=== PATIENT | female | born 1985 | race Caucasian/White ===

== ENCOUNTER → 2018-01-01 11:45 | Outpatient (CLI) | payer BC, SELFPAY ==
[2018-01-01 12:17] LABS: Bilirubin Urine UA NEGATIVE (NEGATIVE); Color Urine UA YELLOW; Glucose Urine UA NEGATIVE (Normal); Ketones Urine UA NEGATIVE (NEGATIVE); Leukocyte Esterase Urine UA NEGATIVE (NEGATIVE); Nitrite Urine UA Negative (Negative); Occult Blood Urine UA 3+ (Negative); Protein Urine UA NEGATIVE (Negative); Urobilinogen Urine UA 0.2 E.U./dL (0.2)
[2018-01-01 12:18] LABS: Appearance Urine UA Slightly Cloudy
[2018-01-01 12:23] LABS: Amorphous Sediment Urine 4+; Bacteria Urine Few (2-10); Culture Indicated Urine Cult Not Indicated; RBC Urine 0-1/HPF (0-5/HPF); Squamous Epithelial Cell Urine 5-10 /HPF; WBC Urine 0-1/HPF (0-5/HPF)
[2018-01-01 13:11] LABS: Add Manual Diff / Slide Review NO; Basophils Percent Auto 0.5 % (0-2); Eosinophils Percent Auto 2.7 % (2-4); Hemoglobin 14.5 g/dL (12.0-16.0); Lymphocytes Percent Auto 31.2 % (25-40); Mean Corpuscular HGB Conc 33.6 % (30-36); Mean Corpuscular Hemoglobin 27.9 PG (26-34); Monocytes Percent Auto 6.8 % (3-14); Neutrophils Absolute Auto 5000 /uL (3000-5900); Neutrophils Percent Auto 58.8 % (50-75); Platelet Count 312 X10^3/uL (150-400); Red Blood Cell Count 5.19 X10^6/uL (4.0-5.2); Red Cell Distribution Width 13.5 % (11.6-14.8); White Blood Cell Count 8.5 X10^3/uL (4.5-11.0)
[2018-01-01 13:23] LABS: Alanine Aminotransferase 85 IU/L (9-52); Albumin 4.3 g/dL (3.5-5.0); Albumin Globulin Ratio 1.6 (1.0-2.8); Alkaline Phosphatase 74 U/L (38-126); Aspartate Aminotransferase 28 IU/L (14-36); BUN Creatinine Ratio 12.9 (6-22); Bilirubin Total 0.7 mg/dL (0.2-1.3); Blood Urea Nitrogen 9 mg/dL (7-17); Calcium 9.9 mg/dL (8.4-10.2); Carbon Dioxide 30 mmol/L (22-32); Chloride 102 mmol/L (98-107); Estimated Glomerular Filt Rate > 60.0 mL/min (>60); Globulin 2.7 g/dL (1.7-4.1); Glucose 82 mg/dL (70-100); HEMOLYSIS < 15 (0-50); Lipase 60 U/L (23-300); Potassium 4.8 mmol/L (3.4-5.1); Sodium 140 mmol/L (137-145)
== END ==
PROVIDERS: PCP Family Medicine; Visit Provider Internal Medicine
DX: R10.11 Right upper quadrant pain (principal)
CPT/HCPCS: 36415; 80053; 81003; 81015; 83690; 85025

== ENCOUNTER → 2018-01-04 07:40 | Outpatient (CLI) | payer BC, SELFPAY ==
--- NOTE | 2018-01-04 07:41 | DI.US.S_ITS ---
PROCEDURE: US ABDOMEN COMPLETE INDICATIONS: RIGHT UPPER QUADRANT PAIN TECHNIQUE: Real-time scanning was performed of the abdominal and retroperitoneal organs, with image documentation. COMPARISON: [facility], CT, ABD/PELVIS W/CON (PNL), 12/24/2013, 16:28. FINDINGS: Liver: Liver is normal in size and homogeneous in echotexture. Gallbladder: Impacted gallstone present above in the gallbladder neck or cystic duct measured 2.9 cm. Gallbladder wall is normal in thickness measuring 2.3 mm. Negative sonographic Landrum's sign. Biliary ducts: Intrahepatic bile ducts are non-dilated. Extrahepatic bile duct caliber measures 5.6 mm. Normal is 6-7 mm or less in diameter, or 10 mm or less post-cholecystectomy. Pancreas: Visualized portions of the pancreas are sonographically normal. Spleen: Spleen is normal in size and homogeneous in echotexture. Kidneys: Kidneys are normal in size and echotexture. Right kidney measures 12.8 cm long; left kidney measures 11.6 cm long. No hydronephrosis or nephrolithiasis. No solid masses. Aorta: Visualized aorta is normal in caliber at less than 3 cm. Iliacs: Proximal common iliac arteries are normal in caliber at less than 2.5 cm. IVC: Intrahepatic inferior vena cava is patent. Miscellaneous: No free abdominal fluid. IMPRESSION: Impacted stone within the gallbladder neck and/or cystic duct and the gallbladder wall is normal measuring 2.3 mm. Dictated by: Gildardo OLSON Interpreted: Claudia Brasher MD on 01/04/2018 at 9:26 Approved by: Claudia Brasher M.D. on 01/04/2018 at 11:55
== END ==
PROVIDERS: PCP Family Medicine; Visit Provider Internal Medicine
DX: K80.20 Calculus of gallbladder without cholecystitis without obstruction (principal); R10.11 Right upper quadrant pain
CPT/HCPCS: 76700

== ENCOUNTER → 2018-11-29 10:49 | Outpatient (CLI) | payer BC, SELFPAY ==
[2018-11-29 12:36] LABS: Blood Urea Nitrogen 11 mg/dL (7-17); Calcium 9.4 mg/dL (8.4-10.2); Carbon Dioxide 27 mmol/L (22-32); Chloride 104 mmol/L (98-107); Cholesterol 198 mg/dL (140-199); Estimated Glomerular Filt Rate > 60.0 mL/min (>60); Glucose 92 mg/dL (70-100); HDL Cholesterol 42 mg/dL (40-60); HEMOLYSIS < 15 (0-50); LDL Cholesterol Calculated 139 mg/dL (<100); Potassium 3.7 mmol/L (3.4-5.1); Sodium 141 mmol/L (137-145); Triglycerides 86 mg/dL (35-150)
[2018-11-29 13:34] LABS: TSH w/ Reflex to FT4 1.87 uIU/mL (0.47-4.68)
== END ==
PROVIDERS: PCP Registered Nurse; Visit Provider Registered Nurse
DX: Z00.00 Encounter for general adult medical examination without abnormal findings (principal); E66.01 Morbid (severe) obesity due to excess calories
CPT/HCPCS: 36415; 80048; 80061; 84443

== ENCOUNTER → 2021-07-06 07:01 | Outpatient (CLI) | payer BC, SELFPAY ==
--- NOTE | 2021-07-06 07:03 | DI.US.S_ITS ---
PROCEDURE: US OB <= 14 WEEKS FETUS INDICATIONS: INITIAL VIABILITY DATING OUTSIDE/PRIOR DATING DATA: Last menstrual period (LMP): 03/31/2021. LMP-based estimated date of delivery (SANDER): 01/05/2022. First dating scan (date and location): 07/06/2021 at . Estimated date of delivery (SANDER) from first dating scan: 02/18/2022. The calculations are made using the ultrasound SANDER of 02/18/2022. TECHNIQUE: Real-time scanning was performed of the fetus and maternal pelvic organs, with image documentation. Endovaginal scanning was also performed to better visualize the fetus and maternal ovaries. COMPARISON: None. FINDINGS: There is an intrauterine with a gestational sac and pole. The estimated gestational age is 7 weeks 4 days. cardiac activity is present with heart rate 143 BPM. Maternal organs: Ovaries are grossly normal. There is a corpus luteum in left ovary. IMPRESSION: 1. A single living intrauterine gestation with an estimated gestational age of 7 weeks 4 days corresponding to ultrasound SANDER 02/18/2022. We strive to produce accurate, complete, and clear reports of imaging services. To assist us in improving patient care, this report was composed using standard report templates and voice recognition software. Therefore, it may contain abnormal punctuation, insertions and/or omissions. Occasional wrong-word or sound-alike substitutions may occur. Though we review the report and make efforts to correct it, we do recommend that the report be read carefully in proper context to recognize any text inaccuracies. Dictated by: Jolie Vlila M.D. on 07/06/2021 at 9:25 Approved by: Jolie Villa M.D. on 07/06/2021 at 9:29
[2021-07-06 09:49] LABS: Add Manual Diff / Slide Review NO; Basophils Absolute Auto 0 /uL (0-100); Basophils Percent Auto 0.4 % (0-2); Eosinophils Absolute Auto 100 /uL (0-450); Eosinophils Percent Auto 0.8 % (2-4); Hematocrit 38.8 % (36-46); Hemoglobin 13.3 g/dL (12.0-16.0); Lymphocytes Absolute Auto 1900 /uL (1100-4500); Lymphocytes Percent Auto 19.1 % (25-40); Mean Corpuscular HGB Conc 34.3 % (30-36); Mean Corpuscular Hemoglobin 28.1 PG (26-34); Monocytes Absolute Auto 400 /uL (0-900); Monocytes Percent Auto 4.4 % (3-14); Neutrophils Absolute Auto 7500 /uL (1500-7000); Neutrophils Percent Auto 75.3 % (50-75); Platelet Count 320 X10^3/uL (150-400); Red Blood Cell Count 4.72 X10^6/uL (4.0-5.2); Red Cell Distribution Width 13.8 % (11.6-14.8); White Blood Cell Count 9.9 X10^3/uL (4.5-11.0)
[2021-07-06 10:46] LABS: Appearance Urine UA CLEAR; Bilirubin Urine UA NEGATIVE (NEGATIVE); Color Urine UA YELLOW; Glucose Urine UA NEGATIVE (Negative); Hepatitis B Surface Antigen NEGATIVE s/c (NEGATIVE); Ketones Urine UA NEGATIVE (NEGATIVE); Leukocyte Esterase Urine UA NEGATIVE (NEGATIVE); Nitrite Urine UA NEGATIVE (Negative); Occult Blood Urine UA TRACE-INTACT (Negative); Protein Urine UA NEGATIVE (Negative); Specific Gravity Urine UA <=1.005 (1.000-1.035); Urobilinogen Urine UA 0.2 E.U./dL (0.2)
[2021-07-06 11:04] LABS: HIV 1 & 2 Ab/Ag 4th Gen Combo NEGATIVE (NEGATIVE); Hep C Virus Ab w/Reflex Quant NEGATIVE s/c (NEGATIVE)
[2021-07-07 05:58] LABS: RPR Screen Non Reactive (Non Reactive)
[2021-07-07 07:36] LABS: Varicella IgG Antibody 2349 index (Immune >165)
== END ==
PROVIDERS: PCP Family Medicine; Referring Provider Family Medicine; Visit Provider Family Medicine
DX: Z34.81 Encounter for supervision of other normal pregnancy, first trimester (principal); Z3A.01 Less than 8 weeks gestation of pregnancy
CPT/HCPCS: 36415; 76801; 76817; 80055; 81003; 86787; 86803; 86850; 86900; 86901; 87086; 87389

== ENCOUNTER → 2021-07-13 12:52 | Outpatient (CLI) | payer BC, SELFPAY | PROVIDERS: PCP Family Medicine; Referring Provider Family Medicine; Visit Provider Family Medicine | DX: O09.511 Supervision of elderly primigravida, first trimester; Z3A.08 8 weeks gestation of pregnancy | CPT/HCPCS: 36415; 81420 ==

== ENCOUNTER → 2021-08-05 11:31 | Outpatient (CLI) | payer BC, SELFPAY ==
[2021-08-05 13:58] LABS: HCG Quantitative /Beta subunit 13751 mIU/mL
== END ==
PROVIDERS: PCP Family Medicine; Referring Provider Family Medicine; Visit Provider Family Medicine
DX: O03.9 Complete or unspecified spontaneous abortion without complication (principal)
CPT/HCPCS: 36415; 84702

== ENCOUNTER → 2021-08-07 09:25 | Outpatient (CLI) | payer BC, SELFPAY ==
[2021-08-07 10:31] LABS: HCG Quantitative /Beta subunit 13843 mIU/mL
== END ==
PROVIDERS: PCP Family Medicine; Referring Provider Family Medicine; Visit Provider Family Medicine
DX: O03.9 Complete or unspecified spontaneous abortion without complication (principal)
CPT/HCPCS: 36415; 84702

== ENCOUNTER → 2021-08-09 11:37 | Outpatient (CLI) | payer BC, SELFPAY ==
--- NOTE | 2021-08-09 11:38 | DI.US.S_ITS ---
PROCEDURE: US OB <= 14 WEEKS FETUS INDICATIONS: VIABILITY CHECK OUTSIDE/PRIOR DATING DATA: Last menstrual period (LMP): 03/31/2021 LMP-based estimated date of delivery (SANDER): 01/05/2022. First dating scan (date and location): 07/06/2021. Estimated date of delivery (SANDER) from first dating scan: 02/18/2022. TECHNIQUE: Real-time scanning was performed of the fetus and maternal pelvic organs, with image documentation. Endovaginal scanning was also performed to better visualize the fetus and maternal ovaries. COMPARISON: [facility], OB <= 14 WEEKS FETUS, 07/06/2021, 7:12. FINDINGS: Embryo: 1.6 cm corresponding to 8 weeks 0 days. Of note, gestational sac is irregular. Heart rate: No heart tones. Maternal organs: Adnexa within normal limits IMPRESSION: demise at roughly 8 weeks 0 days by crown-rump length. Dr. Bernard given results by the practice representative at 12:05 p.m. 08/09/2021. We strive to produce accurate, complete, and clear reports of imaging services. To assist us in improving patient care, this report was composed using standard report templates and voice recognition software. Therefore, it may contain abnormal punctuation, insertions and/or omissions. Occasional wrong-word or sound-alike substitutions may occur. Though we review the report and make efforts to correct it, we do recommend that the report be read carefully in proper context to recognize any text inaccuracies. Dictated by: Gildardo Rankin [facility] Interpreted: Jun Becerra MD on 08/09/2021 at 12:38 Transcribed by: CHIDI on 08/09/2021 at 12:41 Approved by: Jun Becerra M.D. on 08/09/2021 at 13:03
== END ==
PROVIDERS: PCP Family Medicine; Referring Provider Family Medicine; Visit Provider Family Medicine
DX: O03.9 Complete or unspecified spontaneous abortion without complication (principal)
CPT/HCPCS: 76801; 76817

== ENCOUNTER → 2021-08-19 14:45 | Outpatient (CLI) | payer BC, SELFPAY ==
[2021-08-19 15:52] LABS: HCG Quantitative /Beta subunit 113.8 mIU/mL
== END ==
PROVIDERS: PCP Family Medicine; Referring Provider Family Medicine; Visit Provider Family Medicine
DX: N92.6 Irregular menstruation, unspecified (principal); O03.9 Complete or unspecified spontaneous abortion without complication
CPT/HCPCS: 36415; 84702

== ENCOUNTER → 2021-08-26 10:35 | Outpatient (CLI) | payer BC, SELFPAY ==
[2021-08-26 12:45] LABS: HCG Quantitative /Beta subunit 47.9 mIU/mL
== END ==
PROVIDERS: PCP Family Medicine; Referring Provider Family Medicine; Visit Provider Family Medicine
DX: O03.9 Complete or unspecified spontaneous abortion without complication (principal)
CPT/HCPCS: 36415; 84702

== ENCOUNTER → 2021-09-02 13:57 | Outpatient (CLI) | payer BC, SELFPAY ==
[2021-09-02 14:47] LABS: HCG Quantitative /Beta subunit 22.3 mIU/mL
== END ==
PROVIDERS: PCP Family Medicine; Referring Provider Family Medicine; Visit Provider Family Medicine
DX: O03.9 Complete or unspecified spontaneous abortion without complication (principal)
CPT/HCPCS: 36415; 84702

== ENCOUNTER → 2021-09-16 16:41 | Outpatient (CLI) | payer BC, SELFPAY ==
[2021-09-16 18:50] LABS: Add Manual Diff / Slide Review NO; Basophils Absolute Auto 0 /uL (0-100); Basophils Percent Auto 0.4 % (0-2); Eosinophils Absolute Auto 100 /uL (0-450); Eosinophils Percent Auto 1.1 % (2-4); Hematocrit 35.5 % (36-46); Hemoglobin 12.2 g/dL (12.0-16.0); Lymphocytes Absolute Auto 2900 /uL (1100-4500); Lymphocytes Percent Auto 26.4 % (25-40); Mean Corpuscular HGB Conc 34.3 % (30-36); Mean Corpuscular Hemoglobin 27.7 PG (26-34); Mean Corpuscular Volume 80.5 fL (80-100); Monocytes Absolute Auto 500 /uL (0-900); Monocytes Percent Auto 4.9 % (3-14); Neutrophils Absolute Auto 7300 /uL (1500-7000); Neutrophils Percent Auto 67.2 % (50-75); Platelet Count 331 X10^3/uL (150-400); Red Blood Cell Count 4.41 X10^6/uL (4.0-5.2); Red Cell Distribution Width 13.4 % (11.6-14.8); White Blood Cell Count 10.9 X10^3/uL (4.5-11.0)
[2021-09-16 18:54] LABS: Alanine Aminotransferase 27 IU/L (<35); Albumin 4.3 g/dL (3.5-5.0); Albumin Globulin Ratio 1.5 (1.0-2.8); Alkaline Phosphatase 65 U/L (38-126); Aspartate Aminotransferase 24 IU/L (14-36); BUN Creatinine Ratio 24.6 (6-22); Bilirubin Total 0.7 mg/dL (0.2-1.3); Blood Urea Nitrogen 14 mg/dL (7-17); Carbon Dioxide 25 mmol/L (22-32); Chloride 104 mmol/L (98-107); Estimated Glomerular Filt Rate > 60 mL/min (>60); Globulin 2.9 g/dL (1.7-4.1); Glucose 89 mg/dL (70-100); HEMOLYSIS < 15 (0-50); Potassium 3.2 mmol/L (3.4-5.1); Sodium 138 mmol/L (137-145); Total Protein 7.2 g/dL (6.3-8.2)
[2021-09-16 19:31] LABS: TSH w/ Reflex to FT4 1.51 uIU/mL (0.47-4.68)
[2021-09-17 06:38] LABS: Thyroid Peroxidase Antibodies <8 IU/mL (0-34)
[2021-09-21 19:07] LABS: Cardiolipin Ab IgG <9 GPL U/mL (0-14); Cardiolipin Ab IgM <9 MPL U/mL (0-12)
[2021-09-22 13:03] LABS: Dilute Russell Viper Venom 37.4 sec (0.0-47.0); Lupus Reflex Interpretation Comment: (.); PTT-LA 36.5 sec (0.0-51.9)
[2021-10-01 12:15] LABS: Cardiolipin IgA Negative
== END ==
PROVIDERS: PCP Family Medicine; Referring Provider Family Medicine; Visit Provider Family Medicine
DX: N96 Recurrent pregnancy loss (principal)
CPT/HCPCS: 36415; 80053; 83520; 84443; 85025; 85598; 85613; 86147; 86148; 86376